=== PATIENT | male | born 1970 | race Caucasian/White ===

== ENCOUNTER 2018-03-11 09:38 | Inpatient (IN) | payer OTHER ==
[~2018-03-11] VITALS: Ht 177.8 cm; Wt 79.4 kg
--- NOTE | ~2018-03-11 | EKG ---
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 03/12/18 0737 [id number] [id number] Gibson Broussard MD, FACC /EPI
--- NOTE | ~2018-03-11 | HC ---
[facility] [place] [address] CONSULTATION Name: LELAND ZAMBRANO Room #: 212-P [facility] IN M.R.#: [id number] Admission: 03/11/18 Attend Phys: Ilana Ramirez Discharge: Date of : 68 Report #: [id number] THIS REPORT FOR: //name// CC: [facility] physician/PCP Ilana Ramirez DATE OF SERVICE: 03/12/2018 HISTORY OF PRESENT ILLNESS: The patient is a 47-year-old male who was admitted with some chest pain and pressure. It sounds like classic accelerating angina with some significant chest pressure radiating to the neck, shortness of breath and some diaphoresis, also to the jaw. Worse episode was yesterday. EKG has some nonspecific changes. He has a long history of tobacco use, 2-pack a day smoker and alcohol abuse. He takes no medications. Not sought any medical attention. His troponin is negative. He is pain free currently. Nuclear stress test was done here, which reveals inferior apical reversible defect consistent with ischemia and ejection fraction lower limits of normal. His last alcohol was 48 hours ago, so there is certainly a concern for withdrawal here. EKG was sinus rhythm with right bundle branch block, ST abnormalities noted inferolaterally. Some subtle anterior changes. Chest x-ray was no acute process. SOCIAL HISTORY: Seen no physicians. He is a heavy alcohol and tobacco user. He is accompanied by his mother and father here in the room today. FAMILY HISTORY: Brother at 55 and his mother at 50 had coronary stents. The mother was a nonsmoker. There is strong family history of premature coronary disease. REVIEW OF SYSTEMS: Negative except for some nocturia and as stated above. MEDICATIONS: None. LABORATORY DATA: H and H is 16 and 48, creatinine is 0.9, potassium 3.9. Troponin was negative. BNP was 33. PHYSICAL EXAMINATION: VITAL SIGNS: Blood pressure 134/90. HEENT: Pharynx is clear. NECK: Shows preserved upstrokes without JVD or bruits. LUNGS: Clear, prolonged expiratory phase. CARDIOVASCULAR: Regular rate and rhythm, S1, S2. ABDOMEN: Soft. No HSM or abdominal bruit. EXTREMITIES: Trace of edema. Distal pulses intact. NEUROLOGIC: Nonfocal. SKIN: Warm and dry without xanthoma or ulcer. There is some palmar erythema. [facility] [address] [address] CONSULTATION Name: LELAND ZAMBRANO Room #: 212-P [facility] IN M.R.#: [id number] Admission: 03/11/18 Attend Phys: Ilana Ramirez Discharge: Date of : 68 Report #: [id number] ASSESSMENT: 1. Accelerating angina/unstable angina, abnormal nuclear test. 2. Heavy tobacco use. 3. Impending alcohol withdrawal. 4. Strong family history of premature coronary disease. RECOMMENDATIONS AND PLAN: We will proceed to the Radiological Technologist here somewhat urgently for possible intervention. Risks, benefits, alternatives have been discussed. He does elect to proceed. His cholesterol is 219 LDL 100. We will initiate aspirin and statin. I should also note that his hemoglobin A1c was not elevated and it is back at 5.3. TSH 3.2. Risks, benefits, alternatives discussed. The patient does elect to proceed, although he is certainly very anxious and I am very concerned about the potential alcohol withdrawal, so we want to move fairly quickly and take care of this what I suspect would be a high-grade lesion. By: [id number] Jovany Alexis MD, FACC /nt
[2018-03-11 09:41] VITALS: BP 147/93
[2018-03-11 10:07] LABS: ABSOLUTE NEUTROPHILS 4.9 thou/uL (1.4-8.2); BASOPHILS 0.2 % (0.0-2.0); HEMATOCRIT 48.6 % (42.0-52.0); HEMOGLOBIN 16.9 gm/dL (14.0-18.0); LYMPHOCYTES 26.8 % (24.0-44.0); MCH 32.4 pg (26.0-34.0); MCHC 34.8 g/dL (28.0-37.0); MCV 93.3 fL (80.0-100.0); PLATELET COUNT 267 thou/uL (150-400); RBC 5.21 mil/uL (4.50-6.00); RDW 13.8 % (10.5-14.5); WBC 7.6 thou/uL (4.0-11.0)
[2018-03-11 10:12] LABS: ANION GAP 10 mmol/L (7-16); BUN 5 mg/dL (7-18); CALCIUM 8.3 mg/dL (8.5-10.1); CHLORIDE 100 mmol/L (98-107); CO2 25 mmol/L (21-32); CREATININE 0.9 mg/dL (0.7-1.3); GLUCOSE 129 mg/dL (74-106); POTASSIUM 3.9 mmol/L (3.5-5.1); SODIUM 135 mmol/L (136-145)
[2018-03-11 10:21] LABS: ALBUMIN 3.8 g/dL (3.4-5.0); SGOT 25 U/L (15-37); SGPT 27 U/L (30-65); TOTAL BILIRUBIN 0.4 mg/dL (<0.1-1.0); TOTAL PROTEIN 7.3 g/dL (6.4-8.2); TROPONIN-I < 0.04 ng/mL (<0.06)
[2018-03-11 10:41] VITALS: BP 127/81
[2018-03-11 11:39] LABS: CHOLESTEROL 219 mg/dL (<200); HDL CHOLESTEROL 75 mg/dL (>40); LDL CHOLESTEROL 100 mg/dL (<100); TC:HDL 2.9 Ratio (Not establshd); TRIGLYCERIDE 221 mg/dL (<150); VLDL 44 mg/dL (<40)
[2018-03-11 11:44] VITALS: BP 112/78
[2018-03-11 15:33] VITALS: BP 124/88
[2018-03-11 16:34] LABS: TSH 3.291 uIU/mL (0.358-3.740)
[2018-03-11 19:27] VITALS: BP 130/86
[2018-03-12] VITALS (13 sets, daily range): BP systolic 112–144; BP diastolic 80–105
[2018-03-12 04:07] LABS: GLYCOHEMOGLOBIN (HGB A1C) 5.3 % (4.8-5.6)
[2018-03-13 00:11] VITALS: BP 135/96
[2018-03-13 05:44] VITALS: BP 131/98
[2018-03-13 08:00] VITALS: BP 148/99
[2018-03-13] MEDS ORDERED: BRILINTA90 MG PO (09:40)
[2018-03-13] MEDS ORDERED: ATORVASTATIN CA40 MG PO (09:40)
[2018-03-13] MEDS ORDERED: METOPROLOL SUCC25 M1 PO (09:41)
[2018-03-13] MEDS ORDERED: FOLIC ACID 1 MG1 MG PO (09:41)
[2018-03-13] MEDS ORDERED: ASPIR 8181 MG PO (09:41)
[2018-03-13] MEDS ORDERED: VITAMIN B-1100 M2 PO (09:42)
[2018-03-13 13:11] VITALS: BP 131/98
== END 2018-03-13 14:00 | disposition home or self-care (01) | DRG 303 ==
LOC: ER 09:38 → EROBS 10:46 → 2N 11:44
PROVIDERS: Hospitalist; Nurse Practitioner; Physician Assistant
DX: I25.110 Atherosclerotic heart disease of native coronary artery with unstable angina pectoris (principal); F10.239 Alcohol dependence with withdrawal, unspecified; E78.5 Hyperlipidemia, unspecified; I10 Essential (primary) hypertension; F17.210 Nicotine dependence, cigarettes, uncomplicated; Z95.5 Presence of coronary angioplasty implant and graft; Z79.82 Long term (current) use of aspirin; Z79.899 Other long term (current) drug therapy; Z82.49 Family history of ischemic heart disease and other diseases of the circulatory system
CPT/HCPCS: 10081

== ENCOUNTER 2018-03-16 21:40 | Emergency (ER) | payer OTHER ==
[~2018-03-16] VITALS: Ht 180.3 cm; Wt 77.1 kg
--- NOTE | ~2018-03-16 | EKG ---
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: [facility] : 1970 Requested By: Mark Streeter Order Number: [id number] MD: Gibson Broussard Measurements Intervals [place] Rate: 81 P: 42 OR: 139 QRS: -60 QRSD: 115 T: 7 QT: 364 QTc: 423 Interpretive Statements Sinus rhythm Incomplete RBBB and LAFB Compared to ECG 03/11/2018 09:41:57 No significant change was found Electronically Signed On 03-17-2018 7:37:51 CDT by Gibson Broussard [email or web address] <ELECTRONICALLY SIGNED> By: Gibson Broussard MD, [facility] 03/17/18 0737 2138 2138 Gibson Broussard MD, FACC /EPI
[~2018-03-16 21:40] MED LIST: ASPIR 8181 MG PO; ATORVASTATIN CA40 MG PO; BRILINTA90 MG PO; FOLIC ACID 1 MG1 MG PO; METOPROLOL SUCC25 M1 PO; VITAMIN B-1100 M2 PO
[2018-03-16 22:03] LABS: ABSOLUTE NEUTROPHILS 5.8 thou/uL (1.4-8.2); BASOPHILS 0.2 % (0.0-2.0); EOSINOPHILS 4.4 % (0.0-3.0); HEMATOCRIT 47.4 % (42.0-52.0); HEMOGLOBIN 16.4 gm/dL (14.0-18.0); LYMPHOCYTES 26.8 % (24.0-44.0); MCH 32.2 pg (26.0-34.0); MCHC 34.6 g/dL (28.0-37.0); MONOCYTES 11.1 % (1.0-8.0); PLATELET COUNT 300 thou/uL (150-400); POLYS 57.5 % (36.0-66.0); RBC 5.09 mil/uL (4.50-6.00); RDW 13.6 % (10.5-14.5)
[2018-03-16 22:10] LABS: ANION GAP 8 mmol/L (7-16); BUN 8 mg/dL (7-18); CALCIUM 9.9 mg/dL (8.5-10.1); CHLORIDE 105 mmol/L (98-107); CO2 26 mmol/L (21-32); CREATININE 0.9 mg/dL (0.7-1.3); GLUCOSE 139 mg/dL (74-106); SODIUM 139 mmol/L (136-145)
[2018-03-16 22:20] LABS: TROPONIN-I < 0.04 ng/mL (<0.06)
[2018-03-16] MEDS ORDERED: MOBIC15 MG PO (23:16)
== END 2018-03-16 23:40 | disposition home or self-care (01) ==
LOC: ER 21:40
PROVIDERS: Physician Assistant
DX: R07.89 Other chest pain (principal); F17.210 Nicotine dependence, cigarettes, uncomplicated